=== PATIENT | female | born 1965 | race Caucasian/White ===

== ENCOUNTER 2019-01-16 07:19 | Day surgery (SDC) | payer MEDICAID ==
[~2019-01-16] VITALS: Ht 147.3 cm; Wt 51.1 kg
[2019-01-16] VITALS (9 sets, daily range): BP systolic 102–127; BP diastolic 56–79; PULSE 76–84; RESP 16–20; Ht 147.3 cm; Wt 51.1 kg
[~2019-01-16 07:19] MED LIST: ACET-141 PO; ASCO500C7 PO; CHOL100062 PO; FERR27TA; OMEG1CAP2 PO; ONDA4TAB8 PO; OXYC-279 PO; PREN1TAB49; PREN1TAB49 PO
[2019-01-16] MEDS ORDERED: SOD CHLORIDE 0.9% 1,000 ML IV SCH ×2 (08:07→08:30)
[2019-01-16] MEDS ORDERED: POLYMYXIN/BACITRACIN 1L IRRIG IRR ONE (08:30)
[2019-01-16] MEDS ORDERED: CEFAZOLIN 1 GM/50 ML (PMX) 50 ML IVPB ONE ×2 (08:30→09:27)
[2019-01-16] MEDS ORDERED: HEPARIN 1000 UNITS/ML 10 ML INJ ONE (09:02)
[2019-01-16] MEDS ORDERED: MIDAZOLAM 1 MG/ML 2 ML INJ ONE (09:58)
[2019-01-16] MEDS ORDERED: FENTAnyl 50 MCG/ML VIAL ONE (09:58)
== END 2019-01-16 19:00 | disposition home or self-care (01) ==
LOC: SDS 07:19
PROVIDERS: ATTEND Internal Medicine Hematology & Oncology
DX: C50.912 Malignant neoplasm of unspecified site of left female breast (principal)
CPT/HCPCS: 36561; 76942; J0690; J1644; J2250; J3010; Z7610; 76937

== ENCOUNTER 2019-02-22 18:16 | Emergency (ER) | payer MEDICAID ==
[~2019-02-22] VITALS: Ht 152.4 cm; Wt 48.1 kg
[~2019-02-22 18:16] MED LIST changes: -FERR27TA; -PREN1TAB49; -PREN1TAB49 PO
[2019-02-22 18:29] VITALS: Ht 152.4 cm; Wt 48.1 kg
[2019-02-22] MEDS ORDERED: SOD CHLORIDE 0.9% 1,000 ML IV STA (19:10)
[2019-02-22] MEDS ORDERED: ONDANSETRON 4 MG INJ IV STA (19:10)
[2019-02-22] MEDS ORDERED: DEXTROSE 5%-0.45% NACL 500 ML BAG IV* ONE (19:30)
[2019-02-22] MEDS ORDERED: LORAZEPAM 2 MG INJ IV ONE (19:30)
[2019-02-22] MEDS ORDERED: POTASSIUM CHLORIDE (SR) 20 MEQ TAB PO STA (20:07)
[2019-02-22 22:03] VITALS: BP 130/81; PULSE 89; RESP 20
== END 2019-02-22 22:03 | disposition home or self-care (01) ==
LOC: E/R 18:16
DX: R11.2 Nausea with vomiting, unspecified (principal); E87.6 Hypokalemia; Z85.3 Personal history of malignant neoplasm of breast
CPT/HCPCS: 36415; 80048; 85025; 96361; 96374; 96375; J2060; J2405; J7030; Z7502; Z7610